=== PATIENT | male | born 1950 ===

== ENCOUNTER 2017-07-25 08:52 | Inpatient (IN) | payer MEDICARE, OTHER ==
[2017-07-25] MEDS ORDERED: Sodium Chloride 0.9% 1,000 ML IV STA (09:27)
[2017-07-25] MEDS ORDERED: Albuterol-Ipratrop 3 mg / 0.5 (3 ml) UD IH STA (09:28)
--- NOTE | 2017-07-25 09:34 | ED PDOC ---
Arrival/HPI - General Chief Complaint: Syncope Time Seen by Provider: 07/25/17 09:05 Historian: Patient, Family (spouse and brother) - History of Present Illness Narrative History of Present Illness (Text): 07/25/17 09:30 pt p/w + sudden onset of severe lightheadedness this morning while at home, pt subsequently passed out while sitting at the dinner room table and then nearly passed out again 30min after; pt states with first syncope, pt may have struck his head on the table (right sided); pt states no urinary/bowel incontinence with the syncope; pt states over the last 5 days with dry at times productive ( white sputum/non-bloody) phlegm; pt states + subjective fever, + slight chills, no shivers/sweats, no cp/sob/palpitations, + runny nose, mild body aches, no abd pain, no n/v, no numbness/tingling, + decr appetite, + constipation, no rashes/bleeding, no other complaints pt has not seen a PCP for many years pt states he is not on any medications currently PCP: none 07/25/17 12:02 Time/Duration: Prior to Arrival, < week (5 days of fever/coughing/body malaise) Symptom Onset: Sudden Symptom Course: Unchanged Quality: Aching Severity Level: 2 Activities at Onset: Rest Context: Home Past Medical History - Provider Review Nursing Documentation Reviewed: Yes - Travel History Have you recently traveled outside [place] w/in the past 3 mons?: No - Past History Past History: No Previous - Infectious Disease Hx of Infectious Diseases: None - Psychiatric Hx Substance Use: No - Surgical History Other/Comment: right inguinal hernia - Anesthesia Hx Anesthesia: Yes Hx Anesthesia Reactions: No Hx Malignant Hyperthermia: No Family/Social History - Physician Review Nursing Documentation Reviewed: Yes Family/Social History: No Known Family HX Smoking Status: Never Smoked Hx Alcohol Use: No Hx Substance Use: No Hx Substance Use Treatment: No Allergies/Home Meds Allergies/Adverse Reactions: Allergies No Known Allergies Allergy (Verified 07/25/17 12:05) Home Medications: Home Meds Medication Instructions Recorded Confirmed No Known Home Med 07/25/17 07/25/17 Review of Systems - Review of Systems Constitutional: Fatigue, Weight Change (lost 7 lbs over 2-3 weeks), Fevers Eyes: Normal ENT: Sore Throat, Rhinorrhea. absent: Hearing Changes, Tinnitus Respiratory: Cough, Sputum Cardiovascular: Normal Gastrointestinal: Constipation Genitourinary Male: Normal Musculoskeletal: Back Pain Skin: Normal Neurological: Dizziness, Other (syncope) Endocrine: Normal Hemo/Lymphatic: Normal Psychiatric: Normal Physical Exam Vital Signs Reviewed: Yes Vital Signs Temp Pulse Resp BP Pulse Ox 07/25/17 11:28 71 18 114/67 98 07/25/17 11:15 65 18 102/74 98 07/25/17 09:00 98.7 F 60 19 100/70 98 Temperature: Afebrile Blood Pressure: Hypotensive Pulse: Regular Respiratory Rate: Normal Appearance: Positive for: Well-Appearing, Non-Toxic, Other (alert/awake, GCS = 15, oriented x 3, mildly uncomfortable, NAD, cooperative, follows command with ease) Pain Distress: None Mental Status: Positive for: Alert and Oriented X 3 Finger Stick Blood Glucose: 131 - Systems Exam Head: Present: Atraumatic, Normocephalic Pupils: Present: PERRL, Other (no photophobia, sclera anicteric, no nystagmus, visual field intact b/l) Extroacular Muscles: Present: EOMI Conjunctiva: Present: Other (slight pale, no discharge/FB/masses noted). No: Injected, Icteric Ears: Present: Normal Mouth: Present: Other (fair dentitions, no drooling/stridor, + mild dry oral mucosa, uvula/tongue are midline, no dysphonia) Pharnyx: Present: Normal Nose (External): Present: Atraumatic Nose (Internal): Present: Normal Inspection Neck: Present: Normal Range of Motion, Trachea Midline, Other (no meningeal signs, no midline tenderness, no nuchal rigidity, no step off). No: MIDLINE TENDERNESS Respiratory/Chest: Present: Clear to Auscultation, Good Air Exchange, Other ( coarse breath sounds bibasiliar, no w/r/r, no tachypenia, no accessory muscle use noted). No: Respiratory Distress, Accessory Muscle Use Cardiovascular: Present: Regular Rate and Rhythm, Normal S1, S2. No: Murmurs, Tachycardic Abdomen: Present: Normal Bowel Sounds, Other (well nourished male, no focal tenderness, no masses/rebound/guarding/rigidity, no kee's sign, no mcburney' s point tenderness) Back: Present: Normal Inspection, Other (no midline tenderness, no step off). No: CVA Tenderness, Midline Tenderness Upper Extremity: Present: Normal Inspection, Normal ROM, NORMAL PULSES, Neurovascularly Intact, Capillary Refill < 2s Lower Extremity: Present: Normal Inspection, NORMAL PULSES, Neurovascularly Intact, Capillary Refill < 2 s, Other (+ ambulatory, neurovasc intact b/l, strength 5/5 grossly intact in all limbs) Neurological: Present: GCS=15, CN II-XII Intact, Speech Normal, Gait Normal, Other (no facial asymmetries, no slurr speech, NIH stroke scale ~ 0) Skin: Present: Warm, Normal Color, Other (cap refill < 1sec, no ulcerations, no petechiae; slight pallor noted) Psychiatric: Present: Alert, Oriented x 3 Medical Decision Making ED Course and Treatment: 07/25/17 09:30 Impression: syncope, fever/coughing/weakness, black stools i have consider all the differential diagnosis regarding pt's chief medical complaints/clinical findings, including but are not limited to: syncope, fever/ coughing/weakness, black stools A/P: syncope, r/o hypovolemia, r/o infection - observe - cultures - iv - labs - xray - ct - observe - supportive care 07/25/17 11:16 Dr. Whiting made aware of patient's emergent complaints, diagnostic finds, and emergency department management. Is agreeable with emergency department admission/observation placement. Would like to give patient a dose of antibiotics and would also like consult under Dr. Aguilar and Dr. Bhardwaj. pt is currently comfortable pt is not in any distress NO CHEST PAIN lungs re-exam: WNL, CTA b/l, no w/r/r pt/family are made aware of her medical results agrees with admission Re-evaluation Time: 11:36 Reassessment Condition: Improving,but remains with symptoms - Critical Care Critical Care Minutes: 45 minutes Critical Care Time: Excluding Proc Time Narrative Critical Care (Text): 07/25/17 11:51 critical care time: 45min, excluding procedure time, excluding time teaching residents/students/mid-level providers; including initial eval/diagnosis, diagnostic interpretation, re-eval, consultations, final disposition - Lab Interpretations Lab Results: 07/25/17 09:35 07/25/17 09:35 Lab Results 07/25/17 10:06: pO2 40, VBG pH 7.32, VBG pCO2 45.0, VBG HCO3 23.2, VBG Total CO2 24.6, VBG O2 Sat (Calc) 73.2 H, VBG Base Excess -3.1 L, VBG Potassium 4.1, Glucose 124 H, Lactate 1.4, FiO2 21.0, Sodium 139.0, Chloride 108.0 H, Venous Blood Potassium 4.1 07/25/17 10:06: Influenza Typ A,B (EIA) Negative for flu a/b 07/25/17 09:50: Blood Type A POSITIVE, Antibody Screen Negative, BBK History Checked No verified bt 07/25/17 09:35: PT 13.5 H, INR 1.17 H, APTT 36.9 H 07/25/17 09:35: Sodium 140, Potassium 4.2, Chloride 104, Carbon Dioxide 21, Anion Gap 19, BUN 21, Creatinine 2.0 H, Est GFR ( Amer) 40, Est GFR (Non- Af Amer) 33, Random Glucose 145 H, Calcium 9.8, Total Bilirubin 1.1, AST 64 H, ALT 33, Alkaline Phosphatase 84, Troponin I < 0.01, NT-Pro-B Natriuret Pep 104, Total Protein 8.1, Albumin 4.0, Globulin 4.2, Albumin/Globulin Ratio 1.0 L, Lipase 396 H 07/25/17 09:35: WBC 4.6, RBC 3.89, Hgb 13.3 L, Hct 38.0 L, MCV 97.7, MCH 34.2, MCHC 35.0, RDW 12.1, Plt Count 106 L, MPV 11.2 H, Gran % 56.6, Lymph % (Auto) 33.3, Darke % (Auto) 9.9 H, Eos % (Auto) 0.0 L, Baso % (Auto) 0.2, Gran # 2.62, Lymph # (Auto) 1.5, Darke # (Auto) 0.5, Eos # (Auto) 0.0, Baso # (Auto) 0.01 I have reviewed the lab results: Yes Interpretation: Abnormal lab values (elevated CREAT; mildly elevated Lipase) - RAD Interpretation Narrative RAD Interpretations (Text): PROCEDURE: CT HEAD WITHOUT CONTRAST. Dictator : Silvestre Meza MD Report Date : 07/25/2017 11:09:35 IMPRESSION: No evidence of acute intracranial hemorrhage intracranial collection mass effect or midline shift. PROCEDURE: Chest X-ray Dictator : Silvestre Meza MD Report Date : 07/25/2017 11:26:59 IMPRESSION: No active disease. Radiology Orders: 07/25/17 09:24 HEAD W/O CONTRAST [CT] Stat 07/25/17 09:29 CHEST TWO VIEWS (PA/LAT) [RAD] Stat Cement Tester Assistant: Radiologist - EKG Interpretation EKG Interpretation (Text): 07/25/17 09:35 NSR at 70 bpm, LAD, no ectopy, non-specific st-t changes, ABNL EKG; no old ekg to compare with Interpreted by ED Physician: Yes Type: 12 lead EKG Comparison: No previous EKG avail. - Medication Orders Current Medication Orders: Discontinued Medications Albuterol/Ipratropium (Duoneb 3 Mg/0.5 Mg (3 Ml) Ud) 3 ml IH STAT STA Stop: 07/25/17 09:29 Last Admin: 07/25/17 09:40 Dose: 3 ml Sodium Chloride (Sodium Chloride 0.9%) 1,000 mls @ 999 mls/hr IV .Q1H1M STA Stop: 07/25/17 10:27 Last Admin: 07/25/17 09:40 Dose: 999 mls/hr eMAR Start Stop Document 07/25/17 09:40 RYAN (Rec: 07/25/17 09:40 RYAN [id number]) Intravenous Solution Start Date 07/25/17 Start Time 09:40 End Date 07/25/17 End time 10:40 Total Infusion Time 60 Ceftriaxone Sodium (Rocephin 1 Gram Ivpb) 1 gm in 100 mls @ 200 mls/hr IVPB STAT STA PRN Reason: Protocol Stop: 07/25/17 11:48 Last Admin: 07/25/17 11:42 Dose: 200 mls/hr eMAR Start Stop Document 07/25/17 11:42 RYAN (Rec: 07/25/17 11:42 RYAN [id number]) Intravenous Solution Start Date 07/25/17 Start Time 11:42 End Date 07/25/17 End time 12:12 Total Infusion Time 30 Pantoprazole Sodium (Protonix Inj) 40 mg IVP STAT STA Stop: 07/25/17 09:29 Last Admin: 07/25/17 09:40 Dose: 40 mg IVP Administration Document 07/25/17 09:40 RYAN (Rec: 07/25/17 09:40 RYAN [id number]) Charges for Administration # of IVP Administrations 1 Disposition/Present on Arrival - Present on Arrival Any Indicators Present on Arrival: No History of DVT/PE: No History of Uncontrolled Diabetes: No Urinary Catheter: No History of Decub. Ulcer: No History Surgical Site Infection Following: None - Disposition Have Diagnosis and Disposition been Completed?: Yes Diagnosis: Syncope and collapse, Dehydration, At risk for sepsis, Weakness Disposition: HOSPITALIZED Disposition Time: 11:00 Patient Plan: Admission, Telemetry Patient Problems: Current Active Problems Problem Status Onset Syncope and collapse Acute Dehydration Acute At risk for sepsis Acute Weakness Acute Condition: STABLE
[2017-07-25 09:47] LABS: BASO # 0.01 K/mm3 (0.0-2.0); BASO % 0.2 % (0.0-3.0); GRAN # 2.62 (1.4-6.5); GRAN % 56.6 % (50.0-68.0); HEMOGLOBIN 13.3 g/dL (14.0-18.0); LYMPH # 1.5 (1.2-3.4); LYMPH % 33.3 % (22.0-35.0); MEAN CELL VOLUME 97.7 fl (80.0-105.0); MEAN CORPUSCULAR HEMOGLOBIN 34.2 pg (25.0-35.0); MEAN PLATELET VOLUME 11.2 fl (7.0-11.0); MONO # 0.5 (0.1-0.6); MONO % 9.9 % (1.0-6.0); RBC 3.89 10^6/uL (3.5-6.1); RED CELL DISTRIBUTION WIDTH 12.1 % (11.5-14.5); WHITE BLOOD COUNT 4.6 10^3/ul (4.5-11.0)
[2017-07-25 09:58] LABS: INR 1.17 (0.93-1.08); PARTIAL THROMBOPLASTIN TIME 36.9 Seconds (25.1-36.5); PROTHROMBIN TIME 13.5 SECONDS (9.4-12.5)
[2017-07-25 10:10] LABS: VENOUS BLOOD GAS BASE EXCESS -3.1 mmol/L (0.0-2.0); VENOUS BLOOD GAS PO2 40 mm/Hg (30-55); VENOUS BLOOD PH 7.32 (7.32-7.43)
[2017-07-25 10:12] LABS: ALT/SGPT 33 U/L (7-56); AST/SGOT 64 U/L (17-59); BLOOD UREA NITROGEN 21 mg/dL (7-21); CALCIUM 9.8 mg/dL (8.4-10.5); GFR AFRICAN-AMERICAN 40; GFR NON-AFRICAN AMERICAN 33; LIPASE 396 U/L (23-300)
[2017-07-25 10:24] LABS: B-TYPE NATRIURETIC PEPTIDE 104 pg/mL (0-450); TROPONIN I < 0.01 ng/mL
--- NOTE | 2017-07-25 11:11 | CT ---
PROCEDURE: CT HEAD WITHOUT CONTRAST. HISTORY: syncope COMPARISON: None available. TECHNIQUE: Axial computed tomography images were obtained through the head/brain without intravenous contrast. Radiation dose: Total exam DLP = 959.33 mGy-cm. This CT exam was performed using one or more of the following dose reduction techniques: Automated exposure control, adjustment of the mA and/or kV according to patient size, and/or use of iterative reconstruction technique. FINDINGS: HEMORRHAGE: No intracranial hemorrhage. BRAIN: No mass effect or edema. No atrophy or chronic microvascular ischemic changes. VENTRICLES: Unremarkable. No hydrocephalus. CALVARIUM: Unremarkable. PARANASAL SINUSES: Mild mucosal thickening seen in the right maxillary and ethmoid sinuses. MASTOID AIR CELLS: Unremarkable as visualized. No inflammatory changes. OTHER FINDINGS: None. IMPRESSION: No evidence of acute intracranial hemorrhage intracranial collection mass effect or midline shift.
[2017-07-25] MEDS ORDERED: cefTRIAXone 1 gm 1 GM/100 ML BAG IVPB STA (11:19)
--- NOTE | 2017-07-25 11:28 | RAD ---
HISTORY: syncope, coughing, fever x 5 days COMPARISON: No prior. TECHNIQUE: Chest PA and lateral FINDINGS: LUNGS: No active pulmonary disease. PLEURA: No significant pleural effusion identified. No pneumothorax apparent. CARDIOVASCULAR: Normal. OSSEOUS STRUCTURES: No significant abnormalities. VISUALIZED UPPER ABDOMEN: Normal. OTHER FINDINGS: None. IMPRESSION: No active disease.
[2017-07-25 15:51] VITALS: BMI 28.4
[2017-07-25] MEDS ORDERED: Influenza Vaccine 60 mcg/0.5 mL SYR (4YR UP) IM ONE (15:51)
[2017-07-25] MEDS ORDERED: Pneumococcal 23-Valent Vaccine IM ONE (15:51)
[2017-07-25] MEDS ORDERED: Enoxaparin 30 mg Syringe SC SCH (18:00)
[2017-07-25] MEDS ORDERED: Dextrose 5%/0.45% NS 1,000 ML IV SCH (18:00)
[2017-07-25 20:41] LABS: URINE APPEARANCE CLEAR (CLEAR); URINE BILIRUBIN NEGATIVE (NEGATIVE); URINE BLOOD TRACE-INTACT (NEGATIVE); URINE COLOR YELLOW (YELLOW); URINE GLUCOSE (UA) NEGATIVE (NEGATIVE); URINE LEUKOCYTE ESTERASE NEGATIVE Leu/uL (NEGATIVE); URINE PROTEIN 100 mg/dL (<30 mg/dL); URINE UROBILINOGEN 0.2 E.U./dL (<1 E.U./dL)
[2017-07-25 20:49] LABS: URINE BACTERIA MOD (NEG); URINE RBC NEGATIVE /hpf (0-2)
[2017-07-25] MEDS ORDERED: guaiFENesin 200 mg/10 ml Syrup UD PO STA (22:01)
[2017-07-26 07:02] LABS: HEMOGLOBIN 11.3 g/dL (14.0-18.0); MEAN CELL VOLUME 97.7 fl (80.0-105.0); MEAN CORPUSCULAR HGB CONC 33.8 g/dl (31.0-37.0); MEAN PLATELET VOLUME 11.5 fl (7.0-11.0); RBC 3.42 10^6/uL (3.5-6.1); RED CELL DISTRIBUTION WIDTH 12.4 % (11.5-14.5)
[2017-07-26 07:08] LABS: CALCIUM 9.2 mg/dL (8.4-10.5)
--- NOTE | 2017-07-26 10:25 | CARD ---
APPROVED REPORT EKG Measurement Heart [id number] CT [id number] [id number] <Conclusion> Normal sinus rhythm Left axis deviation RVCD Baseline artifact present
[2017-07-26] MEDS: Promethazine DM 6.25 mg-15 mg/5 ml Syrup PO SCH ×2 (17:15→22:33)
[2017-07-26 17:56] VITALS: O2SAT 97
--- NOTE | 2017-07-26 19:28 | PN ---
DATE: SUBJECTIVE: This is a 67-year-old black male with past medical history not significant. He did have a sudden onset of lightheadedness, and while he was sitting, passed out on the dining table while he was having his tea. PHYSICAL EXAMINATION: No facial asymmetry. Tongue midline. Motor examination, moves all the extremities equally. Tone normal. Deep tendon reflexes 1+. Both plantars are downgoing. Sensory appears intact. Cerebellar, gait deferred. LABORATORY DATA: WBC 4.6, hemoglobin 13.3, hematocrit 38, and platelet 106. Sodium 140, potassium 4.2, chloride 104, CO2 of 21, glucose 144, BUN 21, creatinine 2. IMPRESSION: Syncope, less likely seizure. CAT scan of the head was done, which was negative. PLAN: Workup in progress. Continue present management. We will follow up. Abraham Bhardwaj MD
[2017-07-26] MEDS ORDERED: Dextrose 5%/0.9% NS 1,000 ML IV SCH (19:45)
--- NOTE | 2017-07-27 01:16 | PN ---
DATE: SUBJECTIVE: A 67-year-old male. Patient is more comfortable. No distress. No recurrent symptoms. No dizziness. He has no other complaints. He feels fine. He is alert, awake, oriented x3. PHYSICAL EXAMINATION: VITAL SIGNS: Today, 07/26/2017, temperature 98.4, heart rate 64, blood pressure 108/71, respiration 20, saturation 96%. HEAD AND NECK: Normal. No JVD. No thyromegaly. CHEST: Clear. Good air entry. CARDIAC: First sound and second sound normal. ABDOMEN: Soft and nontender. EXTREMITIES: No edema. NEUROLOGIC: Normal. LABORATORY DATA: Repeat laboratory study shows white count 4, hemoglobin 11.3, hematocrit 33.4, platelet is 95. Chemistries noted for sodium 141, potassium 4.2, chloride 110, bicarb 22, BUN 18, creatinine 1.5 and patient has also triglycerides of 107, cholesterol 91, LDL 46 and PTH 1.39. IMPRESSION AND PLAN: 1. Syncope, etiology unclear. Urology consultation by Dr. Bhardwaj, saw the patient, agree with the continuation of treatment plan. 2. Patient will be seen by Dr. Aguilar. 3. Low platelets. Repeated. It was low. We will get a Hematology consult. We will repeat platelets manually. 4. Acute renal failure, improved with intravenous hydration. We will continue current therapy, which is intravenous fluids with normal saline and we will see the ultrasound of the abdomen results and we will get sed rate in the morning and CBC and platelet manual and chemistry in the morning. We will follow up clinically. Prabhu Whiting MD
[2017-07-27 06:52] LABS: BASO # 0.01 K/mm3 (0.0-2.0); BASO % 0.3 % (0.0-3.0); EOS % 0.6 % (1.5-5.0); GRAN # 1.16 (1.4-6.5); GRAN % 35.1 % (50.0-68.0); HEMOGLOBIN 10.4 g/dL (14.0-18.0); LYMPH # 1.8 (1.2-3.4); LYMPH % 55.8 % (22.0-35.0); MEAN CELL VOLUME 97.8 fl (80.0-105.0); MEAN CORPUSCULAR HEMOGLOBIN 32.7 pg (25.0-35.0); MEAN CORPUSCULAR HGB CONC 33.4 g/dl (31.0-37.0); MEAN PLATELET VOLUME 11.7 fl (7.0-11.0); MONO # 0.3 (0.1-0.6); MONO % 8.2 % (1.0-6.0); RBC 3.18 10^6/uL (3.5-6.1); RED CELL DISTRIBUTION WIDTH 12.5 % (11.5-14.5); WHITE BLOOD COUNT 3.3 10^3/ul (4.5-11.0)
[2017-07-27 07:09] LABS: ALB/GLOB RATIO 0.8 (1.1-1.8); ALBUMIN 3.1 g/dL (3.0-4.8); ALT/SGPT 31 U/L (7-56); AST/SGOT 55 U/L (17-59); BLOOD UREA NITROGEN 16 mg/dL (7-21); CALCIUM 8.8 mg/dL (8.4-10.5); GFR AFRICAN-AMERICAN > 60; GFR NON-AFRICAN AMERICAN > 60
[2017-07-27 08:30] VITALS: BP 115/92; PULSE 56; RESP 20; TEMP 98.4
--- NOTE | 2017-07-27 08:30 | HP ---
A 67-year-old male who came into the hospital for syncope. HISTORY OF PRESENT ILLNESS: A 67-year-old male with no significant past medical history, came into the hospital because of syncope. He got up in the morning, walking, sitting down. He felt lightheadedness and passed out for few seconds, and he was sitting in the table and he passed out again , but he regained consciousness completely, he knows where he is. There is no any other complaints. No nausea, no vomiting, no diarrhea, no fever, no chills. Recently, he does have some cough, but there is no any other complaint. PAST MEDICAL HISTORY: None. MEDICATIONS: None. SOCIAL HISTORY: . No smoking, no drinking. FAMILY HISTORY: Noncontributory. ALLERGIES: NO KNOWN ALLERGY. PHYSICAL EXAMINATION: GENERAL: When he came in, the patient was seen on 07/25/2017. VITAL SIGNS: Temperature 98.7, heart rate 60, blood pressure 100/70, respiration 19, saturation 98%. HEAD AND NECK: Normal. No JVD. No thyromegaly. CHEST: Clear. Good air entry. CARDIAC: First sound and second sound normal. ABDOMEN: Soft and nontender. EXTREMITIES: No edema. NEUROLOGIC: Normal. The patient is alert, awake, and oriented x3. LABORATORY DATA: Shows sodium 140, potassium 4.2, chloride 104, bicarbonate 21, BUN 21, creatinine is 2, blood sugar 145, calcium 9.8. AST 64, ALT is normal, alkaline phosphatase is normal. Troponin is negative. The patient's lipase is 396. CBC shows white count 4.6, hemoglobin 16.3, hematocrit 38, platelets 106. Urinalysis is normal. Serology influenza 1 and 2 is negative. IMPRESSION AND PLAN: 1. Syncope, etiology unclear. EKG was within normal limits. No acute ST elevations. Normal sinus rhythm. We will admit the patient for telemetry. We have Cardiology and Neurology consultations to see the patient. 2. Acute renal failure, low platelets. We will consider repeating the lab in the morning, IV hydration consider also Hematology consult hemolytic-uremic syndrome, although I see that lab-castaneda, the patient has a little bit of platelets down to I believe 106. We do not have old labs to compare whether this is new or old; we will follow on that. 3. Acute renal failure, IV hydration, so repeat the lab in the morning. 4. Anemia. We will get ultrasound of the abdomen and see how will it helps, look for any etiology of splenomegaly or any underlying tumors. We will follow up on that. At this time, continue current therapy. The patient got Baby Aspirin 81 mg and we will give him IV fluids, and we will give him deep venous thrombosis prophylaxis 30 mg subcutaneously daily. Continue current treatment. Follow up clinically. Prabhu Whiting MD
[2017-07-27] MEDS: Promethazine DM 6.25 mg-15 mg/5 ml Syrup PO SCH ×2 (09:04→13:23)
--- NOTE | 2017-07-27 09:22 | US ---
HISTORY: anemia, low platlets COMPARISON: None. TECHNIQUE: Sonographic evaluation of the abdomen. FINDINGS: LIVER: Measures cm. Heterogeneous echogenicity of the liver parenchyma. No mass. No intrahepatic bile duct dilatation. GALLBLADDER: Unremarkable. No gallstones. COMMON BILE DUCT: Measures mm. No stones. No dilatation. PANCREAS: Unremarkable as visualized. No mass. No ductal dilatation. RIGHT KIDNEY: Measures cm. Normal echogenicity. No calculus, mass, or hydronephrosis. LEFT KIDNEY: Measures cm. Normal echogenicity. No calculus, mass, or hydronephrosis. 1.5 centimeter left upper pole renal cyst. SPLEEN: Normal in size and contour. No mass. AORTA: No aneurysmal dilatation. IVC: Unremarkable. OTHER FINDINGS: None. IMPRESSION: Mild heterogeneity of the liver which could indicate mild fatty infiltration. Left upper pole renal cyst measuring 1.5 centimeters.
[2017-07-27] MEDS ORDERED: cefTRIAXone 1 gm 1 GM/100 ML BAG IVPB SCH (10:00)
--- NOTE | 2017-07-27 11:39 | CP.PCM.CON ---
History of Present Illness - History of Present Illness History of Present Illness: Heme-onc Consult Note, Maxwell Roland DO, PGY-2 IM This is a 67 yo M who denies any past medical history who presented to [facility] [place] with multiple syncopal episodes (at least one with fall and head trauma), subjective fevers, intermittently productive cough, and general malaise. Heme- onc was consulted for thrombocytopenia. Patient again denies medical history to interviewer, although does admit to right inguinal hernia repair that was previously documented when reminded of this. Denies HTN, CAD, history of cardiac cath and/or stents, DM, or any family history of the same. Confirms that he is on a daily aspirin, 81mg, and when asked why, reports he saw a commercial recommending it, so he has been taking it for years. Denies any history of GI bleed, hematemesis, melena, hematochezia, tarry black stools, and denies any recent diarrhea/constipation, straining to move bowels, or blood when wiping. Denies all tobacco, alcohol, or illicits. All other ROS in 12-system review negative. PMH: denies PSH: as above, date uncertain Fam Hx: pt denies Soc Hx: denies tobacco, alcohol, illicits PMD: None, doesn't follow doctors Review of Systems - Review of Systems All systems: reviewed and no additional remarkable complaints except (as per HPI ) Past Patient History - Infectious Disease Hx of Infectious Diseases: None - Past Social History Smoking Status: Never Smoked - CARDIAC Hx Cardiac Disorders: No - PULMONARY Hx Respiratory Disorders: No - NEUROLOGICAL Hx Neurological Disorder: Yes Hx Dizziness: Yes (syncope 14,17-18) - HEENT Hx HEENT Problems: No - RENAL Hx Chronic Kidney Disease: No - ENDOCRINE/METABOLIC Hx Endocrine Disorders: No - HEMATOLOGICAL/ONCOLOGICAL Hx Blood Disorders: No - INTEGUMENTARY Hx Dermatological Problems: No - MUSCULOSKELETAL/RHEUMATOLOGICAL Hx Musculoskeletal Disorders: No Hx Falls: No - GASTROINTESTINAL Hx Gastrointestinal Disorders: Yes (right inguinal hernia repair 30 yrs ago.) Other/Comment: 07-25-17 BLACK STOOL - GENITOURINARY/GYNECOLOGICAL Hx Genitourinary Disorders: No - PSYCHIATRIC Hx Psychophysiologic Disorder: No Hx Substance Use: No - SURGICAL HISTORY Hx Surgeries: Yes Other/Comment: right inguinal hernia - ANESTHESIA Hx Anesthesia: Yes Hx Anesthesia Reactions: No Hx Malignant Hyperthermia: No Meds Allergies/Adverse Reactions: Allergies Allergy/AdvReac Type Severity Reaction Status Date / Time No Known Allergies Allergy Verified 07/25/17 12:05 - Medications Medications: Current Medications Dextrose/Sodium Chloride (Dextrose 5%/0.9% Ns 1000 Ml) 1,000 mls @ 75 mls/hr IV .[id number] [facility] Last Admin: 07/26/17 20:08 Dose: 75 mls/hr Ceftriaxone Sodium (Rocephin 1 Gram Ivpb) 1 gm in 100 mls @ 100 mls/hr IVPB DAILY [facility] PRN Reason: Protocol Last Admin: 07/27/17 09:05 Dose: 100 mls/hr Promethazine HCl/Dextromethorphan (Phenergan Dm Syrup) 5 ml PO QID [facility] Last Admin: 07/27/17 09:04 Dose: 5 ml Physical Exam - Constitutional Appears: Well, Non-toxic, No Acute Distress - Head Exam Head Exam: ATRAUMATIC, NORMAL INSPECTION, NORMOCEPHALIC - Eye Exam Eye Exam: EOMI, Normal appearance. absent: Conjunctival injection, Scleral icterus Pupil Exam: absent: Irregular, Unequal Additional comments: no conjunctival pallor - ENT Exam ENT Exam: Mucous Membranes Moist - Neck Exam Neck exam: Positive for: Full Rom, Normal Inspection - Respiratory Exam Respiratory Exam: Clear to Auscultation Bilateral, NORMAL BREATHING PATTERN. absent: Rales, Rhonchi, Wheezes - Cardiovascular Exam Cardiovascular Exam: REGULAR RHYTHM, RRR, +S1, +S2. absent: Bradycardia, Tachycardia, Irregular Rhythm, JVD, +S4 - GI/Abdominal Exam GI & Abdominal Exam: Normal Bowel Sounds, Soft. absent: Tenderness - Extremities Exam Extremities exam: Positive for: normal capillary refill, normal inspection, pedal pulses present. Negative for: calf tenderness, pedal edema, tenderness - Back Exam Back exam: absent: CVA tenderness (L), CVA tenderness (R) - Neurological Exam Neurological exam: Alert, Oriented x3 - Psychiatric Exam Psychiatric exam: Normal Affect, Normal Mood - Skin Skin Exam: Dry, Intact, Normal Color, Warm Additional comments: no scattered echymosis, skin changes, or rashes appreciated Results - Vital Signs Recent Vital Signs: Last Vital Signs Temp 98.4 F 07/27/17 08:29 Pulse 56 L 07/27/17 08:29 Resp 20 07/27/17 08:29 BP 115/92 H 07/27/17 08:29 Pulse Ox 97 07/27/17 08:29 - Labs Result Diagrams: 07/27/17 06:00 07/27/17 06:00 Labs: Laboratory Results - last 24 hr 07/27/17 07/27/17 06:00 06:00 WBC 3.3 L RBC 3.18 L Hgb 10.4 L Hct 31.1 L MCV 97.8 MCH 32.7 MCHC 33.4 RDW 12.5 Plt Count 82 L Manual Plt Count 125 MPV 11.7 H Gran % 35.1 L Lymph % (Auto) 55.8 H Cole % (Auto) 8.2 H Eos % (Auto) 0.6 L Baso % (Auto) 0.3 Gran # 1.16 L Lymph # (Auto) 1.8 Cole # (Auto) 0.3 Eos # (Auto) 0.0 Baso # (Auto) 0.01 Sodium 142 Potassium 4.4 Chloride 111 H Carbon Dioxide 21 Anion Gap 15 BUN 16 Creatinine 1.2 Est GFR ( Amer) > 60 Est GFR (Non-Af Amer) > 60 Random Glucose 104 Calcium 8.8 Total Bilirubin 0.8 AST 55 ALT 31 Alkaline Phosphatase 55 Total Protein 6.7 Albumin 3.1 Globulin 3.6 Albumin/Globulin Ratio 0.8 L Assessment & Plan - Assessment and Plan (Free Text) Assessment: This is a 67 yo M who denies any past medical history who presented to [facility] [place] with multiple syncopal episodes (at least one with fall and head trauma), subjective fevers, intermittently productive cough, and general malaise. Heme- onc was consulted for thrombocytopenia. Plan: Thrombocytopenia - progressively dropping RONIT - resolving Anemia Syncopal episodes -Progression of anemia and initial RONIT likely due to dehydrated state; Cr improved from 2.0 to 1.2 on IVF, and likely Hgb drop from 13.3 to 10.4 while maintaining hemodynamic stability is dilutional -unclear why patient is on Aspirin, could be contributing to thrombocytopenia, will hold for now in absence of reason to be on -Hepatitis panel to rule out Hep C as cause for thrombocytopenia -no need for platelet tranfusion at this time, no pending procedures and no sign of active bleeding, transfuse if platelets < 10 or < 20 with signs of bleeding Patient reviewed and discussed with attending at length, Dr. Mancini
[2017-07-27] MEDS ORDERED: Influenza Vaccine 60 mcg/0.5 mL SYR (4YR UP) IM ONE (15:36)
[2017-07-27 16:55] LABS: HEPATITIS B SURFACE AG Negative (NEGATIVE)
--- NOTE | 2017-07-27 16:59 | PN ---
DATE: 07/27/2017 NEUROLOGY FOLLOWUP CHIEF COMPLAINT: Followup for syncope. SUBJECTIVE: The patient is seen and examined at bedside. No longer feeling lightheaded. Oncology is on board for thrombocytopenia, elevated ESR level which was noted as well. Currently, he is well hydrated. Blood pressure was initially systolically and diastolically on the lower side for his height, but no focal neurological deficits seen on examination. He is undergoing an echocardiogram. No acute events overnight. PAST MEDICAL HISTORY: Denies. PAST SURGICAL HISTORY: As above. FAMILY HISTORY: Noncontributory. SOCIAL HISTORY: No illicit drug use, smoking or EtOH abuse. REVIEW OF SYSTEMS: Fourteen-point review of systems is negative except as per the HPI. PHYSICAL EXAMINATION: VITAL SIGNS: Temperature of 98.4, pulse rate of 56, blood pressure of 115/92, respiratory rate of 20, oxygen saturation 97% by room air. GENERAL: The patient is sitting up in bed, in no acute distress. HEENT: Atraumatic, normocephalic. PERRLA. Extraocular muscles intact. NECK: Supple. No JVD. No adenopathy noted. LUNGS: Clear to auscultation. No adventitious sounds. HEART: S1, S2. Normal rate and rhythm. No murmurs, rubs or gallops. ABDOMEN: Soft, nontender and nondistended. Bowel sounds are present. EXTREMITIES: No clubbing. No cyanosis. Peripheral pulses are 2+ felt bilaterally. NEUROLOGIC: The patient is alert and oriented to person, place, month and year. Speech is fluent without any errors. Cranial nerves II through XII intact. Motor exam: Moves all extremities equally. Toes are downgoing bilaterally. Sensory exam: Light touch, pinprick, proprioception and vibration are intact. DTRs are 2+ throughout. Coordination: [id number] intact. No dysmetria noted. LABORATORY DATA: Sodium is 142, potassium 4.4, chloride 111, carbon dioxide 21, BUN of 16, creatinine 1.2, random glucose 104. ASSESSMENT AND PLAN: A 67-year-old man with no significant past medical history, who came with multiple syncopal episodes followed by one fall, subjective previous treatment of productive cough, generalized malaise and had some underlying thrombocytopenia with elevated ESR. He did have also some underlying bradycardia which was seen on 07/27/2017 with pulse rate of 38, but today's pulse is 56. He had also low systolic and diastolic blood pressures for his height. At this time, I feel like his multiple syncopal episodes could be secondary to progression of anemia, superimposed underlying acute kidney injury from underlying dehydrated state causing a vasovagal component. 1. I will recommend him to have an echocardiogram and a Holter monitor and to evaluate more episodes of bradycardia. 2. Follow up with Oncology in regards to his thrombocytopenia and continue with the hydration and continue to correct his underlying metabolic derangements if so. 3. Orthostatic vital signs and avoid hypotensive episodes. Thank you for this followup. Christopher Bhardwaj MD
[2017-07-27 17:01] LABS: HEPATITIS A IGM NEGATIVE (NEGATIVE); HEPATITIS B CORE AB NEGATIVE (NEGATIVE)
[2017-07-27 17:12] LABS: HEPATITIS C ANTIBODY NEGATIVE (NEGATIVE)
--- NOTE | 2017-07-27 23:45 | CON ---
DATE: 07/27/2017 CONSULT: Cardiology. REASON FOR CONSULTATION: Cardiac evaluation, syncope, admitted with syncope. BRIEF CLINICAL HISTORY: This is a 67-year-old male with no significant past medical history, admitted because of the syncope. Patient claims that he got up in the morning, walking and sitting, and all of a sudden felt lightheadedness and passed out for a few seconds, and then when he was sitting in the table, he passed out again, but he regained consciousness. Denies any chest pain. Denies any shortness of breath. Denies any palpitation. PAST MEDICAL HISTORY: Nothing. CURRENT MEDICATION: None. SOCIAL HISTORY: . Denies smoking. Denies any history of alcohol abuse. is at the bedside. FAMILY HISTORY: Noncontributory. ALLERGIES: NO KNOWN DRUG ALLERGY. REVIEW OF SYSTEMS: As per HPI. PHYSICAL EXAMINATION: As follows; VITAL SIGNS: Temperature afebrile, heart rate 56, blood pressure 115/92. HEENT: PERRLA. Extraocular muscles intact. NECK: Supple. No carotid bruits or thyromegaly. CHEST: Clear to auscultation. HEART: S1 and S2 regular. ABDOMEN: Soft. EXTREMITIES: Clubbing and cyanosis negative. LABORATORY DATA: Blood workup as follows; WBC 3.3, hemoglobin 10.4, hematocrit 31.1, platelet count 82, manual 125. Chemistry shows sodium 140, potassium 4.4, chloride 111, carbon dioxide 21, anion gap of 15, BUN 16, creatinine 1.2. Total protein 6.7, albumin 3.1, albumin-globulin ratio 0.8. DIAGNOSTIC DATA: EKG shows normal sinus rhythm at a rate of 71. IMPRESSION: Syncope - etiology is not clear, acute renal failure - improving, anemia, thrombocytopenia, no acute ST-T wave changes, so far no evidence of acute myocardial infarction, troponin remains flat, no evidence of arrhythmia. RECOMMENDATION: We will get echo to assess LV function, rule out any structural heart disease and stress test. Continue hydration. Monitor renal function. We will get lipid profile, TSH, hemoglobin A1c. We will follow with you. We will keep n.p.o. after midnight for the stress test in the morning. Rule out orthostatic hypotension also. Thank you Dr. Whiting for providing us the opportunity in taking care of the patient, Harpal Tyson. Nely Aguilar MD [facility] # [id number]
--- NOTE | 2017-07-28 14:19 | DS ---
HISTORY OF PRESENT ILLNESS: The patient was admitted with syncope 2 times at home. The patient was not eating enough. His appetite is not that good and came in to the hospital. Found to be dehydrated with acute renal failure, prerenal due to dehydrations. The patient was given IV fluids. His creatinine came down from 2 to on discharge 1.2. The patient has also had slight elevation in his lipase, but he does not have any symptoms. The patient also has PTT and PT were slightly elevated. He had also serology for low platelets. According to the resident on the case for Hematology/Oncology, as the etiology for low platelets, he had a workup including hepatitis A, B, C, which came back negative. The patient also has influenza A and B and came back negative. The patient also had a urinalysis, which came back negative. He did have some protein in the urine and while in the hospital on admission, he has platelets 106, it was down to 95; however, manual platelets count was 125, which is normal. The patient also advised not to take the aspirin for the time being. He also has the workup to be done. However, the patient was stable, feels good. No dizziness. Recommendations to be discussed with the nurse practitioners. The patient can be discharged as per nurse practitioner to get the echo and the stress test as outpatient. The patient has troponin and was negative. He had a CT chest. CT head was negative. Chest x-ray shows no active lung disease. Abdominal ultrasound was negative except for possible fatty infiltrations and he has normal sinus rhythm, left axis deviations and artifact and conduction problem. Otherwise, no evidence of ischemia on the EKG and the patient denied any chest pain; however, stress test was scheduled and including echo to rule out any structural disease. Although, clinically on examination there is no evidence of murmurs and the patient denied any history of cardiac disease. PHYSICAL EXAMINATION: On discharge, his physical examination as follows; VITAL SIGNS: Temperature 98.7, heart rate 68, blood pressure 112/80, respirations 16, saturations 98%. HEAD AND NECK: Normal. No JVD. No thyromegaly. CHEST: Clear. Good air entry. CARDIAC: First sound and second sound normal. ABDOMEN: Soft, nontender. EXTREMITIES: No edema. NEUROLOGIC: Nonfocal. DISCHARGE DIAGNOSES: 1. Syncope. Most likely etiology is dehydration. 2. Anemia and low platelets, etiology unclear. Hematology consult to be followed. The patient advised to follow up with the director of program management as outpatient. Hold off on aspirin for the next few days until further advice by the Hematology group. 3. Dehydration. Advised to increase p.o. fluids. 4. Thrombocytopenia, stable. We will follow up as outpatient. PLAN: 1. Continue current management. Increase p.o. intake. Aspirin I would say twice a week for now after further evaluation of his low platelets. Platelets were normal on discharge, by manual count 125, so we will continue aspirin for prevention of stroke and heart attack. 2. The patient will be scheduled for a stress test and echo as outpatient. Discussed the case with Dr. Aguilar and the nurse practitioner and the Neurology consult, Dr. Bhardwaj and the plan of discharge. Prabhu Whiting MD
== END 2017-07-27 16:35 | disposition home or self-care (01) | DRG 684 ==
LOC: ED 08:52 → ERH 11:17 → 3RNO 15:41
PROVIDERS: ADMIT Internal Medicine; ATTEND Internal Medicine
DX: N17.9 Acute kidney failure, unspecified (principal); D69.6 Thrombocytopenia, unspecified; E86.0 Dehydration; R55 Syncope and collapse; D64.9 Anemia, unspecified; R70.0 Elevated erythrocyte sedimentation rate